=== PATIENT | male | born 1995 | race Two or more races ===

== ENCOUNTER 2020-06-30 06:02 | Day surgery (SDC) | payer OTHER ==
[~2020-06-30] VITALS: Ht 180.3 cm; Wt 91.7 kg
[~2020-06-30 06:02] MED LIST: NONE PER PT
[2020-06-30] MEDS ORDERED: LACTATED RINGERS 1,000 ML IV SCH (06:53)
[2020-06-30] MEDS ORDERED: CHLORHEXIDINE 15 ML UDC MM STA (06:53)
[2020-06-30 06:54] VITALS: BP 126/85
[2020-06-30] MEDS ORDERED: BUPIVACAINE/PF 0.5% ONE (07:49)
[2020-06-30] MEDS ORDERED: EPINEPHRINE 1 MG/ML, 1ML ONE (07:49)
[2020-06-30] MEDS ORDERED: FENTANYL PF 250 MCG/5ML ONE (07:56)
[2020-06-30] MEDS ORDERED: LIDOCAINE-MPF 2% ,5ML ONE (07:56)
[2020-06-30] MEDS ORDERED: PROPOFOL 10 MG/ML, 20ML ONE (07:56)
[2020-06-30] MEDS ORDERED: CEFAZOLIN 1,000 MG ONE ×2 (08:20)
[2020-06-30] MEDS ORDERED: DEXAMETHASONE 4 MG/ML, 1ML ONE ×3 (08:21)
[2020-06-30] MEDS ORDERED: KETOROLAC 30 MG/1 ML ONE (08:22)
[2020-06-30] MEDS ORDERED: ONDANSETRON 2MG/ML, 2ML ONE (08:48)
[2020-06-30] MEDS ORDERED: SUGAMMADEX 200 MG/2 ML IVPush ONE (08:49)
[2020-06-30] MEDS ORDERED: ONDANSETRON 2MG/ML, 2ML IVPush PRN (09:00)
[2020-06-30] MEDS ORDERED: PROMETHAZINE 25 MG/ML, 1ML IVPush PRN (09:00)
[2020-06-30] MEDS ORDERED: FENTANYL PF 100 MCG/2ML IV PRN (09:00)
[2020-06-30] MEDS ORDERED: OXYcodone 5 MG/5 ML ORAL.SOL UDC PO PRN (09:00)
[2020-06-30] MEDS ORDERED: HYDROmorphone 1 MG/ML, 1ML INJ IVPush PRN (09:00)
[2020-06-30] MEDS ORDERED: ROCURONIUM 10MG/ML,5ML ONE (11:33)
== END 2020-06-30 11:15 | disposition home or self-care (01) ==
LOC: OUT 06:02
PROVIDERS: ATTEND Colon & Rectal Surgery
DX: K40.90 Unilateral inguinal hernia, without obstruction or gangrene, not specified as recurrent (principal); F17.210 Nicotine dependence, cigarettes, uncomplicated; F12.90 Cannabis use, unspecified, uncomplicated; Z72.89 Other problems related to lifestyle; Z82.49 Family history of ischemic heart disease and other diseases of the circulatory system; Z20.828 Contact with and (suspected) exposure to other viral communicable diseases
CPT/HCPCS: 36415; 49650; 87635; C1727; C1781; J0171; J0690; J1100; J1885; J2405; J2704; J3010; J7120

== ENCOUNTER → 2020-07-18 | Outpatient (CLI) | payer OTHER | END | disposition home or self-care (01) | LOC: CVU 07:31 | PROVIDERS: ATTEND Internal Medicine Cardiovascular Disease | DX: R01.1 Cardiac murmur, unspecified (principal) | CPT/HCPCS: 93306; 93356 ==